=== PATIENT | male | born 2000 | race Caucasian/White ===

== ENCOUNTER 2020-01-22 14:17 | Emergency (ER) | payer MEDICAID ==
[~2020-01-22] VITALS: Ht 160 cm; Wt 91.0 kg
[2020-01-22 15:31] LABS: BASOPHILS % 0.8 % (0.0-2.0); HEMATOCRIT. 46.1 % (42.0-52.0); HEMOGLOBIN. 16.1 g/dL (14.0-18.0); LYMPHOCYTES % 18.5 % (20.0-50.0); MEAN CORPUSCULAR HEMOGLOBIN 31.5 pg (28.0-32.0); MEAN CORPUSCULAR VOLUME 90.4 fL (80.0-94.0); MEAN PLATELET VOLUME 8.2 fl (7.4-10.4); MONOCYTES % 8.1 % (2.0-8.0); NEUTROPHILS % 71.6 % (40.0-76.0); PLATELET 299 x1000/uL (130-400); RED CELL DISTRIBUTION WIDTH 12.1 % (11.6-14.6)
[2020-01-22 15:32] LABS: CHLORIDE 109 mEq/L (98-107)
[2020-01-22 15:36] LABS: ETHANOL BLOOD < 10 mg/dL
[2020-01-22 16:34] LABS: CLARITY URINE CLEAR (CLEAR); COLOR URINE YELLOW (YELLOW); KETONES URINE NEGATIVE (NEGATIVE); LEUKOCYTE ESTERASE URINE NEGATIVE (NEGATIVE); NITRITE URINE NEGATIVE (NEGATIVE); OCCULT BLOOD URINE NEGATIVE (NEGATIVE); PH URINE 6.5 (4.5-8.0); PROTEIN URINE NEGATIVE (NEGATIVE); SPECIFIC GRAVITY URINE 1.028 (1.005-1.030)
[2020-01-22 16:46] LABS: *AMPHETAMINES SCREEN URINE NEGATIVE (NEGATIVE); *BARBITURATES SCREEN URINE NEGATIVE (NEGATIVE); *BENZODIAZEPINES SCREEN URINE NEGATIVE (NEGATIVE); *COCAINE SCREEN URINE NEGATIVE (NEGATIVE)
[2020-01-22 16:47] LABS: CANNABINOID URINE SCREEN PRESUMTIVE POSITIVE (NEGATIVE); METHADONE URINE SCREEN NEGATIVE (NEGATIVE); OPIATES URINE SCREEN NEGATIVE (NEGATIVE); PHENCYCLIDINE URINE SCREEN NEGATIVE (NEGATIVE)
[2020-01-23 10:23] VITALS: BP 127/83
== END 2020-01-23 10:20 | disposition home or self-care (01) ==
LOC: ER 14:17
DX: R44.0 Auditory hallucinations (principal); R94.5 Abnormal results of liver function studies; R45.850 Homicidal ideations; R03.0 Elevated blood-pressure reading, without diagnosis of hypertension; R73.9 Hyperglycemia, unspecified; F12.90 Cannabis use, unspecified, uncomplicated
CPT/HCPCS: 36415; 80053; 80305; 80320; 81003; 85025; 99285; G0480

== ENCOUNTER 2022-01-03 01:00 | Emergency (ER) | payer MEDICAID ==
[~2022-01-03] VITALS: Ht 167.6 cm; Wt 78.0 kg
[2022-01-03] MEDS ORDERED: MORPHINE SULFATE 10 MG/ML CPJ IM ONE (01:45)
[2022-01-03] MEDS ORDERED: ONDANSETRON 4MG ODT PO ONE (01:45)
[2022-01-03] MEDS ORDERED: KETAMINE HCL 50 MG/ML 10ML IV ONE ×2 (02:15→03:00)
[2022-01-03] MEDS ORDERED: PROPOFOL 200MG/20ML VIAL IV ONE ×2 (02:15→03:00)
[2022-01-03] MEDS ORDERED: T3 PO (02:49)
[2022-01-03] MEDS ORDERED: IBUP-2030 MT (02:49)
[2022-01-03 06:20] VITALS: BP 134/87
== END 2022-01-03 06:20 | disposition home or self-care (01) ==
LOC: ER 01:00
DX: S43.085A Other dislocation of left shoulder joint, initial encounter (principal); X58.XXXA Exposure to other specified factors, initial encounter; Y93.89 Activity, other specified; Y92.89 Other specified places as the place of occurrence of the external cause
CPT/HCPCS: 23650; 73030; 96372; 99152; 99285; J2270; J2704; J3490; Q0162; L3670

== ENCOUNTER 2022-09-19 15:39 | Emergency (ER) | payer MEDICAID ==
[~2022-09-19] VITALS: Ht 172.7 cm; Wt 90.0 kg
[~2022-09-19 15:39] MED LIST: IBUP-2030 MT; T3 PO
[2022-09-19 16:02] VITALS: BP 139/91
== END 2022-09-19 19:31 | disposition home or self-care (01) ==
LOC: ER 15:39
DX: F41.0 Panic disorder [episodic paroxysmal anxiety] (principal); R00.0 Tachycardia, unspecified
CPT/HCPCS: 99283

== ENCOUNTER 2022-11-28 15:42 | Emergency (ER) | payer MEDICAID ==
[~2022-11-28] VITALS: Ht 175.3 cm; Wt 98.2 kg
[2022-11-28] MEDS ORDERED: KETOROLAC 60MG/2ML VIAL IM ONE (16:30)
[2022-11-28] MEDS ORDERED: MORPHINE SULFATE 10 MG/ML CPJ IM ONE (17:30)
[2022-11-28] MEDS ORDERED: IBUP-2029 MT (18:49)
[2022-11-28] MEDS ORDERED: ACETAMINOPHEN WITH CODEINE 300/30MG TABLET PO ONE (19:00)
[2022-11-28 19:13] VITALS: BP 122/71
== END 2022-11-28 19:24 | disposition home or self-care (01) ==
LOC: ER 16:03
DX: S43.014A Anterior dislocation of right humerus, initial encounter (principal); V18.0XXA Pedal cycle driver injured in noncollision transport accident in nontraffic accident, initial encounter; Y93.55 Activity, bike riding; Y92.488 Other paved roadways as the place of occurrence of the external cause
CPT/HCPCS: 23650; 73030; 96372; 99284; J1885; J2270; Z7610; A4565